=== PATIENT | female | born 1980 | race Caucasian/White ===

== ENCOUNTER 2016-09-22 15:26 | Emergency (ER) | payer OTHER | END 2016-09-22 15:55 | disposition home or self-care (01) | LOC: ER1 15:26 | DX: H60.91 Unspecified otitis externa, right ear (principal); E11.9 Type 2 diabetes mellitus without complications; Z91.041 Radiographic dye allergy status; Z79.84 Long term (current) use of oral hypoglycemic drugs | CPT/HCPCS: 99282 ==

== ENCOUNTER → 2020-06-24 | Outpatient (CLI) | payer BC ==
[~2020-06-24] MED LIST: AUGMENTIN 875-1 EACH PO; CORTISPORIN OTI10 M1 EARRT; DIFLUCAN150 MG PO; FLOMAX 0.4 MG0.4 MG PO; FLOMAX0.4 MG PO; FLOXIN 0.3% OTIC5 ML AD; HYDROCODON-ACE1 EAC4 PO; IBU600 MG PO; IBUPROFEN600 MG PO; LISINOPRIL10 MG PO; METFORMIN HCL1000 MG PO; MYCOSTATIN CREA15 GM TOP; NORCO 7.5-3251 EACH PO; ONDANSETRON ODT4 MG SL; PRENATAL VITAMIN PO; PROVERA PO; TRULICITY1.5 MG/0.5 SQ
[2020-06-24 09:07] LABS: HEMOGLOBIN 12.3 gm/dl (12.3-15.3); RED BLOOD COUNT 4.48 M/UL (4.00-5.10); WHITE BLOOD COUNT 5.8 K/UL (4.5-11.0)
[2020-06-24 09:30] LABS: BUN/CREATININE RATIO 21 (0-10)
== END ==
LOC: OPSV2 08:00
PROVIDERS: Obstetrics & Gynecology
DX: Z01.818 Encounter for other preprocedural examination (principal); N84.0 Polyp of corpus uteri; Z91.041 Radiographic dye allergy status; Z88.8 Allergy status to other drugs, medicaments and biological substances
CPT/HCPCS: 36415; 80048; 81001; 85025; 93005

== ENCOUNTER → 2020-06-28 | Day surgery (SDC) | payer BC, OTHER | END | disposition home or self-care (01) | LOC: OR 06:50 | DX: N84.0 Polyp of corpus uteri (principal); Q51.3 Bicornate uterus; N83.209 Unspecified ovarian cyst, unspecified side; E11.65 Type 2 diabetes mellitus with hyperglycemia; I10 Essential (primary) hypertension; E78.5 Hyperlipidemia, unspecified; Z88.8 Allergy status to other drugs, medicaments and biological substances; Z79.84 Long term (current) use of oral hypoglycemic drugs; Z79.899 Other long term (current) drug therapy | CPT/HCPCS: 36415; 82962; 84703; J1100; J1885; J2001; J2250; J2405; J2704; J2795; J3010; J7030; J7120 ==

== ENCOUNTER 2020-07-17 09:18 | Emergency (ER) | payer BC, OTHER ==
[~2020-07-17 09:18] MED LIST changes: -FLOMAX0.4 MG PO
[2020-07-17 10:33] LABS: HEMOGLOBIN 12.2 gm/dl (12.3-15.3); RED BLOOD COUNT 4.45 M/UL (4.00-5.10); WHITE BLOOD COUNT 5.8 K/UL (4.5-11.0)
[2020-07-17 10:48] LABS: BUN/CREATININE RATIO 19 (0-10)
[2020-07-17] MEDS ORDERED: HYDROCODON-ACE1 EAC4 PO (11:53)
[2020-07-17] MEDS ORDERED: FLOMAX0.4 MG PO (12:04)
== END 2020-07-17 12:36 | disposition home or self-care (01) ==
LOC: ER1 09:18
PROVIDERS: Emergency Medicine
DX: N13.2 Hydronephrosis with renal and ureteral calculous obstruction (principal); I10 Essential (primary) hypertension; E11.9 Type 2 diabetes mellitus without complications; Z87.442 Personal history of urinary calculi; Z90.49 Acquired absence of other specified parts of digestive tract
CPT/HCPCS: 80053; 81001; 83690; 84703; 85025; 96374; 96375; 96376; 99284; J1885; J2270; J2405

== ENCOUNTER 2020-09-14 00:53 | Emergency (ER) | payer BC, OTHER ==
[~2020-09-14 00:53] MED LIST changes: +FLOMAX0.4 MG PO
[2020-09-14 03:14] LABS: HEMOGLOBIN 11.6 gm/dl (12.3-15.3); RED BLOOD COUNT 4.13 M/UL (4.00-5.10); WHITE BLOOD COUNT 5.5 K/UL (4.5-11.0)
[2020-09-14 04:03] LABS: BUN/CREATININE RATIO 17 (0-10)
== END 2020-09-14 06:35 | disposition home or self-care (01) ==
LOC: ER1 00:53
PROVIDERS: Physician Assistant
DX: I10 Essential (primary) hypertension (principal); E11.9 Type 2 diabetes mellitus without complications
CPT/HCPCS: 71045; 80053; 82550; 82553; 83874; 83880; 84484; 85025; 85610; 85730; 93005; 99285

== ENCOUNTER 2021-11-26 10:33 | Emergency (ER) | payer BC ==
[2021-11-26 11:47] LABS: HEMOGLOBIN 11.4 gm/dl (12.3-15.3); RED BLOOD COUNT 4.27 M/UL (4.00-5.10); WHITE BLOOD COUNT 6.8 K/UL (4.5-11.0)
[2021-11-26 12:07] LABS: BUN/CREATININE RATIO 19 (0-10)
[2021-11-26] MEDS ORDERED: TORADOL 10 MG T10 MG PO (14:34)
== END 2021-11-26 14:55 | disposition home or self-care (01) ==
LOC: ER1 10:33
PROVIDERS: Physician Assistant
DX: R10.31 Right lower quadrant pain (principal); E11.9 Type 2 diabetes mellitus without complications; I10 Essential (primary) hypertension; R10.811 Right upper quadrant abdominal tenderness; Z87.442 Personal history of urinary calculi; Z90.49 Acquired absence of other specified parts of digestive tract; Z88.8 Allergy status to other drugs, medicaments and biological substances; Z88.5 Allergy status to narcotic agent
CPT/HCPCS: 80053; 81001; 84703; 85025; 87086; 96361; 96374; 99284; J1885